=== PATIENT | female | born 1985 | race Caucasian/White ===

== ENCOUNTER 2017-04-24 11:49 | Emergency (ER) | payer OTHER ==
[~2017-04-24] VITALS: Ht 157.5 cm; Wt 64.1 kg
[2017-04-24 11:50] VITALS: BP 102/61
[2017-04-24] MEDS ORDERED: CLOB05OI EXT (12:39)
[2017-04-24] MEDS ORDERED: FLUO0.0118 EX (12:39)
== END 2017-04-24 12:48 | disposition home or self-care (01) ==
LOC: M ED 12:27
DX: L30.9 Dermatitis, unspecified (principal); F17.210 Nicotine dependence, cigarettes, uncomplicated

== ENCOUNTER 2017-05-29 15:11 | Emergency (ER) | payer MEDICAID, OTHER, SELFPAY ==
[~2017-05-29] VITALS: Ht 157.5 cm; Wt 63.6 kg
[2017-05-29 15:11] VITALS: BP 131/75
[~2017-05-29 15:11] MED LIST: CLOB05OI EXT; FLUO0.0118 EX
== END 2017-05-29 16:00 | disposition home or self-care (01) ==
LOC: M ED 15:11
DX: S50.862A Insect bite (nonvenomous) of left forearm, initial encounter (principal); Z72.0 Tobacco use; W57.XXXA Bitten or stung by nonvenomous insect and other nonvenomous arthropods, initial encounter; Y92.89 Other specified places as the place of occurrence of the external cause; Y93.89 Activity, other specified; Y99.9 Unspecified external cause status

== ENCOUNTER → 2018-02-17 | Outpatient (REF) | payer OTHER ==
[2018-02-17 17:00] LABS: BASO % 0.4 % (0.0-1.0); EOS # 0.2 10^3/uL (0.0-0.50); EOS % 3.1 % (0.0-3.0); HEMATOCRIT 42.1 % (36.0-47.0); HEMOGLOBIN 14.7 g/dl (12.0-15.5); IMMATURE GRANULOCYTE % 0.1 % (0-3.0); LYMPH # 2.1 10^3/uL (1.5-4.5); LYMPH % 31.4 % (24.0-44.0); MEAN CORPUSCULAR HEMOGLOBIN 30.2 pg (27.0-33.0); MEAN CORPUSCULAR HGB CONC 34.9 g/dl (32.0-36.5); MEAN CORPUSCULAR VOLUME 86.6 fl (80.0-96.0); MONO # 0.4 10^3/uL (0.0-0.8); MONO % 6.1 % (0.0-5.0); NEUTROPHILS # 3.9 10^3/uL (1.8-7.7); NEUTROPHILS % 58.9 % (36.0-66.0); PLATELET COUNT, AUTOMATED 264 10^3/uL (150-450); RED BLOOD COUNT 4.86 10^6/uL (4.00-5.40); RED CELL DISTRIBUTION WIDTH 12.1 % (11.5-14.5); WHITE BLOOD COUNT 6.7 10^3/uL (4.0-10.0)
[2018-02-17 17:18] LABS: ALBUMIN 3.7 GM/DL (3.2-5.2); ALBUMIN/GLOBULIN RATIO 1.06 (1.00-1.93); ALKALINE PHOSPHATASE 83 U/L (45-117); ALT/SGPT 27 U/L (12-78); ANION GAP 8 MEQ/L (8-16); AST/SGOT 16 U/L (7-37); BILIRUBIN,TOTAL 0.3 MG/DL (0.2-1.0); BLOOD UREA NITROGEN 8 MG/DL (7-18); CALCIUM LEVEL 8.4 MG/DL (8.5-10.1); CARBON DIOXIDE LEVEL 27 MEQ/L (21-32); CHLORIDE LEVEL 106 MEQ/L (98-107); CREATININE FOR GFR 0.78 MG/DL (0.55-1.30); GLOMERULAR FILTRATION RATE > 60.0 (>60); GLUCOSE, FASTING 106 MG/DL (70-100); LIPASE 615 U/L (73-393); POTASSIUM SERUM 3.9 MEQ/L (3.5-5.1); SODIUM LEVEL 141 MEQ/L (136-145); TOTAL PROTEIN 7.2 GM/DL (6.4-8.2)
== END ==
LOC: M LAB REF 16:39
DX: R10.9 Unspecified abdominal pain (principal)

== ENCOUNTER 2018-10-10 13:09 | Emergency (ER) | payer BC, OTHER ==
[~2018-10-10] VITALS: Ht 157.5 cm; Wt 65.9 kg
[~2018-10-10 13:09] MED LIST changes: +AUGM500T34 PO; +PRED20TA PO
[2018-10-10] MEDS ORDERED: SERT25TA88 (13:29)
[2018-10-10] MEDS ORDERED: KETOROLAC TROMETHAMINE 10 MG TAB PO ONE (16:15)
[2018-10-10] MEDS ORDERED: ONDANSETRON 4 MG ORAL DISINTEGRATING TAB (Q0162 PER 1MG) PO ONE (16:15)
[2018-10-10 16:30] LABS: BASO % 0.3 % (0.0-1.0); EOS # 0.1 10^3/uL (0.0-0.50); EOS % 1.3 % (0.0-3.0); HEMATOCRIT 41.4 % (36.0-47.0); HEMOGLOBIN 14.3 g/dl (12.0-15.5); LYMPH # 2.2 10^3/uL (1.5-4.5); MEAN CORPUSCULAR HEMOGLOBIN 30.4 pg (27.0-33.0); MEAN CORPUSCULAR HGB CONC 34.5 g/dl (32.0-36.5); MEAN CORPUSCULAR VOLUME 87.9 fl (80.0-96.0); MONO # 0.5 10^3/uL (0.0-0.8); MONO % 4.9 % (0.0-5.0); NEUTROPHILS # 8.1 10^3/uL (1.8-7.7); NEUTROPHILS % 73.1 % (36.0-66.0); PLATELET COUNT, AUTOMATED 276 10^3/uL (150-450); RED BLOOD COUNT 4.71 10^6/uL (4.00-5.40)
[2018-10-10 17:03] LABS: ALBUMIN 3.6 GM/DL (3.2-5.2); ALT/SGPT 24 U/L (12-78); AMYLASE 41 U/L (25-115); BILIRUBIN,DIRECT < 0.1 MG/DL (0.0-0.2); BILIRUBIN,TOTAL 0.3 MG/DL (0.2-1.0); BLOOD UREA NITROGEN 10 MG/DL (7-18); CARBON DIOXIDE LEVEL 29 MEQ/L (21-32); CHLORIDE LEVEL 105 MEQ/L (98-107); CREATININE FOR GFR 0.73 MG/DL (0.55-1.30); GLOMERULAR FILTRATION RATE > 60.0 (>60); GLUCOSE, FASTING 92 MG/DL (70-100); LIPASE 140 U/L (73-393); POTASSIUM SERUM 3.9 MEQ/L (3.5-5.1); SODIUM LEVEL 140 MEQ/L (136-145)
[2018-10-10] MEDS ORDERED: ONDA4TAB6 PO (18:10)
[2018-10-10] MEDS ORDERED: KETO10TAB PO (18:10)
[2018-10-10] MEDS ORDERED: SERT25TA PO (18:11)
[2018-10-10 18:21] VITALS: BP 125/71
== END 2018-10-10 18:23 | disposition home or self-care (01) ==
LOC: M ED 13:09
DX: G44.209 Tension-type headache, unspecified, not intractable (principal); R10.9 Unspecified abdominal pain; R19.7 Diarrhea, unspecified; Z76.0 Encounter for issue of repeat prescription; F41.9 Anxiety disorder, unspecified; F32.9 Major depressive disorder, single episode, unspecified; F17.200 Nicotine dependence, unspecified, uncomplicated; Z79.899 Other long term (current) drug therapy
CPT/HCPCS: 36415; 80048; 80076; 81001; 81025; 82150; 83690; 85025; 99284; Q0162

== ENCOUNTER → 2018-10-27 | Outpatient (REF) | payer OTHER ==
[~2018-10-27] MED LIST changes: +KETO10TAB PO; +ONDA4TAB6 PO; +SERT25TA PO; +SERT25TA88
[2018-10-27 17:19] LABS: THYROID STIMULATING HORMONE 2.34 uIU/ML (0.358-3.740)
[2018-10-27 17:20] LABS: TOTAL 25(OH) VITAMIN D 13.7 NG/ML (30.0-100.0)
== END ==
LOC: M LAB REF 16:36
PROVIDERS: ATTEND Nurse Practitioner Adult Health
DX: F33.1 Major depressive disorder, recurrent, moderate (principal); F41.1 Generalized anxiety disorder

== ENCOUNTER → 2019-05-04 | Outpatient (CLI) | payer OTHER ==
[~2019-05-04] MED LIST changes: +DOXY100C37 PO; +FLUO10CA15 PO; +HYDR-3363 PO; +MACR100C43 PO; +MIRA3350 PO; +PYRI1TAB5 PO; -SERT25TA PO; +SERT25TA21; +SERT25TA85 PO; -SERT25TA88
[2019-05-04 20:13] LABS: CHLAMYDIA DNA AMPLIFICATION NEGATIVE (NEGATIVE); GC DNA AMPLIFICATION NEGATIVE (NEGATIVE)
[2019-05-05 10:14] LABS: HIV 1&2 SCREEN CENTAUR NEGATIVE (NEGATIVE)
== END ==
LOC: M LAB 18:05
PROVIDERS: ATTEND Nurse Practitioner Family
DX: Z11.3 Encounter for screening for infections with a predominantly sexual mode of transmission (principal)

== ENCOUNTER → 2019-05-04 | Outpatient (REF) | payer OTHER ==
[~2019-05-04] MED LIST changes: -DOXY100C37 PO; -FLUO10CA15 PO; -HYDR-3363 PO; -MACR100C43 PO; -MIRA3350 PO; -PYRI1TAB5 PO; -SERT25TA21; +SERT25TA88
[2019-05-10 00:06] LABS: HPV HYBRID CAPTURE II HI RISK Negative (Negative); HPV HYBRID CAPTURE II LOW RISK Negative (Negative)
== END ==
LOC: M LAB REF 17:35
PROVIDERS: ATTEND Nurse Practitioner Family
DX: Z12.4 Encounter for screening for malignant neoplasm of cervix (principal)

== ENCOUNTER 2019-05-28 20:51 | Emergency (ER) | payer OTHER ==
[~2019-05-28] VITALS: Ht 157.5 cm; Wt 64.5 kg
[~2019-05-28 20:51] MED LIST changes: +SERT25TA21; -SERT25TA88
[2019-05-28] MEDS ORDERED: KETOROLAC 30 MG/ML VIAL (J1885) IV ONE (21:30)
[2019-05-28 21:51] LABS: BASO % 0.2 % (0.0-1.0); EOS # 0.2 10^3/uL (0.0-0.5); EOS % 1.3 % (0.0-3.0); HEMATOCRIT 39.8 % (36.0-47.0); HEMOGLOBIN 13.9 g/dl (12.0-15.5); LYMPH % 13.9 % (24.0-44.0); MEAN CORPUSCULAR HEMOGLOBIN 31.1 pg (27.0-33.0); MEAN CORPUSCULAR HGB CONC 34.9 g/dl (32.0-36.5); MONO # 0.7 10^3/uL (0.0-0.8); MONO % 4.6 % (0.0-5.0); NEUTROPHILS # 11.2 10^3/uL (1.5-8.5); NEUTROPHILS % 79.6 % (36.0-66.0); PLATELET COUNT, AUTOMATED 238 10^3/uL (150-450); RED BLOOD COUNT 4.47 10^6/uL (4.00-5.40); WHITE BLOOD COUNT 14.1 10^3/uL (4.0-10.0)
[2019-05-28] MEDS ORDERED: NITROFURANTOIN (MACROBID) 100 MG CAP PO ONE (22:30)
[2019-05-28] MEDS ORDERED: cefTRIAXone SOD 1 GM in D5W MINI-BAG PLUS 50 ML IV ONE (22:30)
[2019-05-28] MEDS ORDERED: PYRI1TAB5 PO (22:40)
[2019-05-28] MEDS ORDERED: MIRA3350 PO (22:40)
[2019-05-28] MEDS ORDERED: MACR100C43 PO (22:40)
[2019-05-28 22:49] VITALS: BP 116/72
--- NOTE | 2019-05-29 01:39 | REP ---
Clinical: Constipation and suprapubic pain. Technique: Supine views of the abdomen and pelvis. Findings: Bowel gas pattern is nonspecific. No evidence for obstruction or perforation. No organomegaly. Skeletal structures are intact. Prior cholecystectomy and tubal ligation. Impression: Nonspecific abdominal radiograph. Electronically Signed by Ted Leone MD 05/29/2019 01:30 A
[2019-07-08] MEDS ORDERED: FLUO10CA15 PO (17:24)
== END 2019-05-28 23:18 | disposition home or self-care (01) ==
LOC: M ED 20:51
DX: N39.0 Urinary tract infection, site not specified (principal); K59.00 Constipation, unspecified; Z79.899 Other long term (current) drug therapy; F17.210 Nicotine dependence, cigarettes, uncomplicated
CPT/HCPCS: 74018; 80047; 81001; 84702; 85025; 87088; 87186; 96365; 96375; 99284; J0696; J1885

== ENCOUNTER 2019-07-08 17:18 | Emergency (ER) | payer OTHER ==
[~2019-07-08] VITALS: Ht 157.5 cm; Wt 64.5 kg
[~2019-07-08 17:18] MED LIST changes: +MACR100C43 PO; +MIRA3350 PO; +PYRI1TAB5 PO
[2019-07-08] MEDS ORDERED: FLUO10CA8 PO (17:24)
[2019-07-08] MEDS ORDERED: HYDR-3363 PO (17:24)
[2019-07-08] MEDS ORDERED: ADACEL/BOOSTRIX VACCINE (DIPHTH/PERTUSS/ACELL/TETANUS)0.5ML SYR (90715) IM ONE (20:15)
[2019-07-08] MEDS ORDERED: NEOSPORIN OINT 0.9 GM PKT (FLOOR STOCK) TOP ONE (20:45)
[2019-07-08] MEDS ORDERED: KETOROLAC 60 MG/2 ML VIAL (J1885) IM ONE (20:45)
[2019-07-08 21:06] VITALS: BP 116/76
== END 2019-07-08 21:04 | disposition home or self-care (01) ==
LOC: M ED 17:18
DX: S91.311A Laceration without foreign body, right foot, initial encounter (principal); W26.8XXA Contact with other sharp object(s), not elsewhere classified, initial encounter; Y92.099 Unspecified place in other non-institutional residence as the place of occurrence of the external cause; Y93.9 Activity, unspecified; Y99.9 Unspecified external cause status; F41.9 Anxiety disorder, unspecified; F32.9 Major depressive disorder, single episode, unspecified; F17.200 Nicotine dependence, unspecified, uncomplicated; Z79.899 Other long term (current) drug therapy
CPT/HCPCS: 90715; 96372; 99284; J1885

== ENCOUNTER 2019-07-24 15:57 | Emergency (ER) | payer OTHER ==
[~2019-07-24] VITALS: Ht 157.5 cm; Wt 64.5 kg
[~2019-07-24 15:57] MED LIST changes: +FLUO10CA8 PO; +HYDR-3363 PO
[2019-07-24 15:58] VITALS: BP 119/76
--- NOTE | 2019-07-24 17:04 | REP ---
Two-view chest: 07/24/2019. Indication: Dyspnea. Cough. Comparison: None. Findings: The lungs are clear. There is no pleural effusion or pneumothorax. The cardiomediastinal silhouette is unremarkable. Impression: No acute cardiopulmonary process. Electronically Signed by Cesar Jones DO 07/24/2019 04:56 P
[2019-07-24] MEDS ORDERED: DOXY100C37 PO (17:24)
[2019-07-24 17:44] LABS: INFLUENZA A AMPLIFICATION NEGATIVE (NEGATIVE); INFLUENZA B AMPLIFICATION NEGATIVE (NEGATIVE)
== END 2019-07-24 17:31 | disposition home or self-care (01) ==
LOC: M ED 15:57
DX: R05 Cough (principal); R50.9 Fever, unspecified; R06.02 Shortness of breath; Z20.89 Contact with and (suspected) exposure to other communicable diseases; F17.200 Nicotine dependence, unspecified, uncomplicated; Z79.899 Other long term (current) drug therapy

== ENCOUNTER 2019-10-15 11:41 | Emergency (ER) | payer OTHER ==
[~2019-10-15] VITALS: Ht 157.5 cm; Wt 70.0 kg
[~2019-10-15 11:41] MED LIST changes: +DOXY100C37 PO; +FLUO10CA15 PO; -FLUO10CA8 PO
[2019-10-15] MEDS ORDERED: ONDANSETRON 4 MG ORAL DISINTEGRATING TAB (Q0162 PER 1MG) PO ONE (13:15)
--- NOTE | 2019-10-15 14:02 | REP ---
Clinical: Trauma with dizziness . Comparison: None . Findings: The ventricles, sulci, and cisterns are normal in position and appearance. Bansal-white differentiation is maintained. No acute intracranial hemorrhage, mass/mass effect, pathology or trauma/injury. No evidence for acute infarction. No extra-axial fluid collection. Calvarium is intact. Paranasal sinuses and mastoid air cells are clear. Impression: Normal noncontrast head CT. No evidence for acute intracranial pathology or trauma/injury. Electronically Signed by Ted Leone MD 10/15/2019 01:54 P
[2019-10-15 14:22] VITALS: BP 108/63
== END 2019-10-15 14:43 | disposition home or self-care (01) ==
LOC: M ED 11:41
DX: S06.0X0A Concussion without loss of consciousness, initial encounter (principal); W00.9XXA Unspecified fall due to ice and snow, initial encounter; Y92.099 Unspecified place in other non-institutional residence as the place of occurrence of the external cause; Y93.9 Activity, unspecified; Y99.9 Unspecified external cause status; F41.9 Anxiety disorder, unspecified; F32.9 Major depressive disorder, single episode, unspecified; F17.200 Nicotine dependence, unspecified, uncomplicated
CPT/HCPCS: 70450; 99283; Q0162

== ENCOUNTER → 2020-04-17 | Outpatient (REF) | payer OTHER, MEDICAID ==
[~2020-04-17] MED LIST changes: -FLUO10CA15 PO; +FLUO10CA16 PO
[2020-05-20 10:27] LABS: APPEARANCE, URINE CLOUDY (CLEAR); BACTERIA, URINE AUTO NEGATIVE (NEGATIVE); BILIRUBIN, URINE AUTO NEGATIVE (NEGATIVE); BLOOD, URINE BLOOD 2+ (NEGATIVE); COLOR, URINE YELLOW (YELLOW); GLUCOSE, URINE (UA) AUTO NEGATIVE (NEGATIVE); KETONE, URINE AUTO NEGATIVE (NEGATIVE); LEUKOCYTE ESTERASE, URINE AUTO NEGATIVE (NEGATIVE); MUCUS, URINE LARGE (NEGATIVE); NITRITE, URINE AUTO NEGATIVE (NEGATIVE); PROTEIN, URINE AUTO NEGATIVE (NEGATIVE); RBC, URINE AUTO 2 /HPF (0-3); SPECIFIC GRAVITY URINE AUTO 1.026 (1.002-1.035); SQUAMOUS EPITHELIAL CELL UR AU 7 /HPF (0-6); UROBILINOGEN, URINE AUTO 0.2 mg/dL (0.0-2.0); WBC, URINE AUTO 1 /HPF (0-3)
[2020-06-02 08:32] LABS: HEPATITIS B SURFACE ANTIBODY NEGATIVE (POSITIVE); HIV 1&2 SCREEN CENTAUR NEGATIVE (NEGATIVE)
== END ==
LOC: M LAB REF 10:34
PROVIDERS: ATTEND Nurse Practitioner Family
DX: Z13.9 Encounter for screening, unspecified (principal); Z11.3 Encounter for screening for infections with a predominantly sexual mode of transmission

== ENCOUNTER → 2020-11-26 | Outpatient (CLI) | payer OTHER ==
[2020-11-26 12:49] LABS: BASO % 0.6 % (0.0-1.0); EOS # 0.2 10^3/uL (0.0-0.5); EOS % 2.5 % (0.0-3.0); HEMATOCRIT 44.8 % (36.0-47.0); HEMOGLOBIN 15.1 g/dl (12.0-15.5); LYMPH # 1.9 10^3/uL (1.5-5.0); LYMPH % 27.4 % (24.0-44.0); MEAN CORPUSCULAR HEMOGLOBIN 29.7 pg (27.0-33.0); MEAN CORPUSCULAR HGB CONC 33.7 g/dl (32.0-36.5); MEAN CORPUSCULAR VOLUME 88.2 fl (80.0-96.0); MONO # 0.5 10^3/uL (0.0-0.8); MONO % 6.5 % (2.0-8.0); NEUTROPHILS # 4.3 10^3/uL (1.5-8.5); NEUTROPHILS % 62.6 % (36.0-66.0); PLATELET COUNT, AUTOMATED 297 10^3/uL (150-450); RED BLOOD COUNT 5.08 10^6/uL (4.00-5.40); WHITE BLOOD COUNT 6.9 10^3/uL (4.0-10.0)
[2020-11-26 13:23] LABS: ALBUMIN 3.6 GM/DL (3.2-5.2); ALT/SGPT 24 U/L (12-78); BILIRUBIN,TOTAL 0.3 MG/DL (0.2-1.0); BLOOD UREA NITROGEN 8 MG/DL (7-18); CALCIUM LEVEL 8.6 MG/DL (8.5-10.1); CARBON DIOXIDE LEVEL 28 MEQ/L (21-32); CHLORIDE LEVEL 106 MEQ/L (98-107); CREATININE FOR GFR 0.68 MG/DL (0.55-1.30); GLOMERULAR FILTRATION RATE > 60.0 (>60); GLUCOSE, FASTING 91 MG/DL (70-100); POTASSIUM SERUM 4.1 MEQ/L (3.5-5.1); SODIUM LEVEL 140 MEQ/L (136-145); TOTAL 25(OH) VITAMIN D 14.2 NG/ML (30.0-100.0)
== END ==
LOC: M LAB 11:54
PROVIDERS: ATTEND Pediatrics
DX: R74.8 Abnormal levels of other serum enzymes (principal)

== ENCOUNTER 2022-09-30 09:14 | Emergency (ER) | payer MEDICAID, OTHER ==
[~2022-09-30] VITALS: Ht 157.5 cm; Wt 79.5 kg
[~2022-09-30 09:14] MED LIST changes: +DOXY-443 PO; -DOXY100C37 PO; -FLUO10CA16 PO; +FLUO10CA18 PO
[2022-09-30 09:16] VITALS: BP 133/91
[2022-09-30] MEDS ORDERED: GABA-1171 (09:31)
[2022-09-30] MEDS ORDERED: VARE1TAB2 (09:31)
[2022-09-30] MEDS ORDERED: TIZA2TA (09:31)
[2022-09-30] MEDS ORDERED: TRAM50TA2 (09:31)
== END 2022-09-30 12:08 | disposition left against medical advice (07) ==
LOC: M ED 09:14
DX: Z53.21 Procedure and treatment not carried out due to patient leaving prior to being seen by health care provider (principal)

== ENCOUNTER 2024-10-27 11:37 | Emergency (ER) | payer MEDICAID, OTHER ==
[~2024-10-27] VITALS: Ht 157.5 cm; Wt 69.4 kg
[~2024-10-27 11:37] MED LIST changes: +DOXY-441 PO; -DOXY-443 PO; +FLUO-290 PO; -FLUO10CA18 PO; +GABA-1171; +ONDA-282 PO; -ONDA4TAB6 PO; +TIZA2TA; +TRAM50TA2; +VARE1TAB2
[2024-10-27 11:42] VITALS: BP 124/70; TEMP 99.1; O2SAT 100
== END 2024-10-27 18:00 | disposition left against medical advice (07) ==
LOC: M ED 11:37
DX: Z53.21 Procedure and treatment not carried out due to patient leaving prior to being seen by health care provider (principal)